=== PATIENT | female | born 1965 | race Caucasian/White ===

== ENCOUNTER → 2017-04-13 | Outpatient (CLI) | payer BC ==
[~2017-04-13] MED LIST: ALEVE220 MG PO; AMLODIPINE BESY10 MG PO; BLACK COHOSH200 MG PO; CELECOXIB200 MG PO; CYCLOBENZAPRINE10 MG PO; IRON325 M1 PO; LEVOTHYROXINE50 MCG PO; OXYCODONE HCL5 MG PO; OXYCONTIN15 MG PO; ROXICODONE5 MG PO; SENNA PLUS TAB1 EACH PO; TRAMADOL HCL50 MG PO; VITAMIN B-650 MG PO; XARELTO10 MG PO
== END | disposition home or self-care (01) ==
LOC: CDC 09:09
DX: M25.522 Pain in left elbow (principal); G56.22 Lesion of ulnar nerve, left upper limb; R94.31 Abnormal electrocardiogram [ECG] [EKG]
CPT/HCPCS: 93000